=== PATIENT | female | born 1975 | race Caucasian/White ===

== ENCOUNTER → 2016-07-26 | Day surgery (SDC) | payer OTHER ==
[~2016-07-26] VITALS: Ht 162.6 cm; Wt 70.8 kg
--- NOTE | 2016-07-26 08:40 | Operative Report ---
Operative/Inv Procedure Report Surgery Date: 07/26/16 Name of Procedure: 1. Single column hemorrhoidectomy 2. Excision of sub-mucosal anal lesion Pre-Operative Diagnosis: Symptomatic mixed hemorrhoidal disease Post-Operative Diagnosis: 1. Symptomatic mixed hemorrhoidal disease 2. Anal submucosal lesion Estimated Blood Loss: scant Surgeon/Radiology Administrator: GARY DUMONT JR, DO Anesthesia: local monitored anesthesi, block Monitors: Per routine Implants: None Drains: None Specimens: 1. Submucosal lesion 2. Right posterior hemorrhoid column Complications: None Condition: Good Operative Indication: This 41-year-old female who presented to my office with complaints of perianal pain and cyclical perianal swelling. She had a single large external hemorrhoid in the right posterior position. The corresponding internal hemorrhoid was also enlarged. After discussion with the patient we decided that the appropriate treatment would be an excisional hemorrhoidectomy. Operative/Procedure Note Note: Patient was taken to the operating room and placed in the prone jackknife position on the operating room table. Once the patient was comfortable IV sedation was initiated and then the gluteal cleft was taped in the abducted position. The patient received IV antibiotics prior to incision. The area was prepped and draped in usual fashion. An anal block was performed using 0.5% Marcaine with epinephrine and 30 mL in total was injected. After completing the injection I gently dilated the anal canal and then placed a Fansler pretty proctoscope. The rectum was copiously irrigated with sterile saline. The retractor was then aligned with the right posterior hemorrhoid column. Adjacent to this hemorrhoid column was a firm submucosal lesion. This lesion was ovid in shape and firm. There was a scar overlying this lesion. The lesion was just posterior to the hemorrhoid column. I decided I would excise this after making my incision around the hemorrhoid column. An elliptical incision was made around the hemorrhoid column starting in the rectum at the level of the hemorrhoid pedicle and coming out into the anal margin skin. Along the posterior incision I raised a flap and was able to sharply excise this lesion which was just caudad to the anal sphincter mechanism in the submucosa. This lesion looked like it was likely a thrombosed and now calcified or scarred portion of the hemorrhoid. The fibers of the internal anal center had now been identified. I continued to sharply excise the hemorrhoid column off the underlying tissues. I bluntly developed the space between the internal anal sphincter and the hemorrhoid column. At the hemorrhoid pedicle the tissue was divided with electrocautery. A [id number] 2-0 Vicryl is used to ligate the hemorrhoid pedicle. The mucosa and anoderm was then closed with a running locking 3-0 Vicryl suture. At this point I inspected for hemostasis which was excellent. No other pathology was present in the anal canal, so the operation was concluded. The perineum was cleansed and dried. Bacitracin ointment and a bulky dressing was applied. The patient was converted back to the supine position and taken to the recovery area in good condition. The patient tolerated this procedure well. At the end of the operational needle sponges and measurements were accounted for. Findings: Single column mixed hemorrhoidal disease Submucosal lesion likely thrombosed , scarred portion of the hemorrhoid
== END ==
LOC: STS 02:45
DX: K64.2 Third degree hemorrhoids (principal); K62.89 Other specified diseases of anus and rectum
CPT/HCPCS: 88304; 88305; J0690; J2250